=== PATIENT | female | born 1970 | race Caucasian/White ===

== ENCOUNTER 2017-02-04 11:47 | Day surgery (SDC) | payer OTHER ==
[~2017-02-04] VITALS: Ht 165.1 cm; Wt 98.0 kg
[~2017-02-04 11:47] MED LIST: DIAZ5TAB3 PO; ESTR1TAB24 PO; HYDR-3090 PO; Lactated Ringer's 1,000 ML IV SCH; OMEP20CA11 PO; VARE1TAB21 PO
[2017-02-04] MEDS ORDERED: Lidocaine PF 1% 30 mL Inj ONE (11:48)
[2017-02-04] MEDS ORDERED: Propofol 10,000 mCg/mL 20 mL Inj ONE (11:48)
[2017-02-04 12:27] VITALS: BP 117/75; PULSE 54; RESP 16; O2SAT 97
[2017-02-04] MEDS ORDERED: MetoCLOpramide 5 mg/mL 2 mL Inj IVPUSH PRN (13:00)
[2017-02-04] MEDS ORDERED: Ondansetron 2 mg/mL 2 mL Inj IVPUSH PRN (13:00)
[2017-02-04] MEDS ORDERED: Lactated Ringer's 1,000 ML IV SCH (13:00)
--- NOTE | 2017-02-04 13:49 | PCM.HPANE ---
Patient Data Date of Service: Feb 04, 2017 Surgeon Admitting Provider: Attending Provider:Gina Harvey MD Primary Care Physician:Shilpa Pires MD Other Provider:Geoffrey Vega Anesthesia Reason for Visit Dysphagia Ht/WT & BMI Height (Feet): 5 Height (Inches): 5 Weight (Kilograms): 98 Body Mass Index 35.00 Allergies Coded Allergies: sumatriptan (Verified Allergy, Severe, BRADYCARDIA, 02/04/17) Past Anesthesia History Anesthesia History: Denies:: Abnormal Airway, Anesthesia Reactions, Difficult Intubation, Fam Anesthesia Reaction, Fam Malignant Hypertherm, Malignant Hyperthermia Diabetes History Hx Diabetes?: No MRSA MRSA: No Medications Hypertension Medication: No Home Meds Incl Beta Araceli: No Reported Medications Omeprazole 20 Mg Capsule.dr20 Mg PO DAILY Ref 0 02/03/17 Estradiol 1 Mg Tablet1 Mg PO DAILY Ref 0 02/03/17 Diazepam 5 Mg Tablet5 Mg PO QID PRN For Anxiety Ref 0 02/03/17 Varenicline Tartrate (Chantix)1 Each Tab.ds.pk1 Each PO 02/03/17 Discontinued Reported Medications Hydrocodone-Acetaminophen 5-300 mg 1 Each Tablet1 Tablet PO Q4H PRN For Pain Ref 0 02/03/17 History HEENT History: Positive for:: Dysphagia (SWALLOWING WATER) Denies:: Abnormal Airway Difficult Intubation Hearing Problem Hx of Heart Problems?: No Cardiovascular History: Denies:: AICD Pacemaker Valvular Heart Disease Hx of Respiratory Problem?: Yes Respiratory History: Positive for:: Asthma Pneumonia Denies:: COPD Cough Hemoptysis Tuberculosis Hx Neurologic Problems?: No Neurological History: Denies:: CVA Hx of GI Problems?: Yes Gastrointestinal History: Positive for:: Gall Bladder Disease Gastroesphageal Reflux Rectal Bleeding Denies:: Cirrhosis Diverticulitis Hiatal Hernia Liver Disease Hx of Problems?: No HX of Peritoneal Dialysis: No Musculoskeletal History: Denies:: Fibromyalgia Joint Replacement Psycho Social History: Positive for:: Anxiety Denies:: Hx Depression Hx Surgeries?: Yes (R KNEE, HYSTERECTOMY, GALLBLADDER, R SHOULDER, T&A) Hx Any Other Health Problems?: Yes Hx Diabetes: No Hx Alcohol Use: Yes (OCCAS) Smoking Status: Current Every Day Smoker Have You Smoked inLast 12 mo: Yes Stop/Bang Treated for Sleep Apnea?: No Do You Have a CPAP Machine?: No S-Snoring: Do You Snore Loudly: Yes T-Tired: feel tired, fatigued: Yes O-Obsered: Observed not breath: No P-Blood Pressure: treated: No B- Body Mass Index > 35 kg/m2: Yes A- Age over 50: No N- Neck Large Circumference: Yes G- Gender Male: No SARAH Total Score: 4 SARAH Risk Assessment: High Risk, =/>3 Yes Risk Assessment Category Category 1A: Patient has history of documented sleep apnea, and HAS NOT received any narcotic, sedative or anesthesia administration during this stay. Category 1B: Patient has history of documented sleep apnea, and HAS received any narcotic , sedative or anesthesia administration during this stay Category 2: Patient has SUSPECTED Obstructive Sleep Apnea, and HAS received any narcotic , sedative or anesthesia administration during this stay. Category 3: Patient has SUSPECTED Obstructive Sleep Apnea and HAS NOT received narcotic, sedative or anesthesia administration during this stay. Category 4: Outpatient in Procedural Areas with known sleep apnea or who screen positive for High Risk via the STOP/BANG questionnaire. Exam Exam Vital Signs Vital Signs Date Time Temp Pulse Resp B/P Pulse Ox O2 Delivery O2 Flow Rate FiO2 02/04/17 12:27 36.7 54 16 117/75 97 Room Air General Appearance: Alert, Oriented X3, Cooperative HEENT/AIRWAY: MP 1, Neck Movement (Full), Mouth Opening (Wide) Lungs: Clear to Auscultation, Normal Air Movement Heart: Regular Rate/Rhythm, Normal S1, Normal S2 Plan Impression Patient chart reviewed, patient interviewed and anesthestic plan with risks, benefits, and alternatives discussed, and informed consent obtained. NPO Status: > 8 hours solids, > 2 hours liquids ASA Physical Status: ASA2 Mod Systemic Disease Anesthetic Plan: MAC Bene/Risks/Altern/Consents: Yes HP Complete Prior to Induction: Yes Floyd Nichols MD Feb 04, 2017 12:59
[2017-02-04 14:24] VITALS: BP 115/75; PULSE 86; RESP 14; O2SAT 95
[2017-02-04 14:34] VITALS: BP 115/75; PULSE 92; RESP 14; O2SAT 95
--- NOTE | 2017-02-04 14:35 | PCM.ANEP1 ---
Post Anesthesia Phase 1 PACU Phase 1 Assessment Date of Service: Feb 04, 2017 Vital Signs Vital Signs Date Time Temp Pulse Resp B/P Pulse Ox O2 Delivery O2 Flow Rate FiO2 02/04/17 14:24 36.4 86 14 115/75 95 Room Air 02/04/17 12:27 36.7 54 16 117/75 97 Room Air Anesthetic Administered: MAC Level of Alertness: Sleepy, easy to arouse DUNLAP's with Equal Strength: No Pain: No Nausea or Vomiting: No Oxygen Delivery: Room Air Lungs: Normal Air Movement Floyd Nichols MD Feb 04, 2017 14:35
--- NOTE | 2017-02-04 14:41 | PCM.ANEP2 ---
Post Anesthesia Evaluation ASA/CMS Post Anesthesia Date of Service: Feb 04, 2017 VS in Patient's Normal Range?: Yes Resp Stable; Airway Patent?: Yes CV Function & Hydration Stable: Yes Mental Status Recovered?: Yes Pain control Satisfactory?: Yes N/V Control Satisfactory?: Yes Floyd Nichols MD Feb 04, 2017 14:41
[2017-02-04 14:44] VITALS: BP 118/71; PULSE 58; RESP 16; O2SAT 100
--- NOTE | 2017-02-05 01:52 | ENDO ---
[address] [address] ENDOSCOPY PROCEDURE PATIENT: FIONA JONES : 1970 MR#: [id number] ADMIT: 02/04/2017 JOB ID: [id number] DATE OF PROCEDURE: PROCEDURE: Esophagogastroduodenoscopy. INDICATION: Dysphagia. SEDATION: Patient's ASA classification, Mallampati score, and medications as per Dr. Дмитрий Nichols's anesthesia report. INSTRUMENT USED: [id number]. PROCEDURE DETAILS: After informed consent was obtained, the patient was brought to the GI suite, where she was placed on oxygen via nasal cannula and monitored with continuous pulse oximeter, telemetry, and blood pressure monitoring. A time-out was performed. Then, she was placed in the left lateral decubitus position and medications were administered for sedation. A bite block was placed. The standard EGD scope was inserted through the bite block and advanced under direct visualization to the second portion of duodenum without difficulty. FINDINGS: 1. Bile stained mucosa was noted throughout the examined portions of the duodenum. Mucosa otherwise appeared normal. 2. Normal appearing pylorus. 3. In the antrum of the stomach the mucosa appeared unremarkable. However, in the body of stomach, there was erythema. There was a clear demarcation between the antrum and body of stomach based on erythema in the body. Multiple random biopsies were obtained throughout the antrum and body of the stomach. 4. Retroflexed views in the gastric body appeared unremarkable. A small hiatal hernia was appreciated. 5. The diaphragmatic hiatus was at approximately 38 cm and the squamocolumnar junction was at 36 cm. Just above the squamocolumnar junction, there was a small island of salmon-colored mucosa that was biopsied. 6. Remainder of the esophagus appeared unremarkable otherwise. 7. Multiple random biopsies were obtained in the midesophagus. IMPRESSION: 1. Gastritis. 2. Slightly irregular gastroesophageal junction. 3. Small hiatal hernia. RECOMMENDATIONS: 1. Continue PPI. 2. Reflux precautions. 3. Await biopsy results and follow up in GI clinic. COMPLICATIONS: None. ESTIMATED BLOOD LOSS: Less than 5 mL.
--- NOTE | 2017-02-08 16:28 | PATH ---
SURGICAL PATHOLOGY Attending Physician:Dunia Escoto CASE STATUS: Signed Out PATIENT NAME: FIONA JONES PID: [id number] : 1970 DATE COLLECTED:02/04/2017 00:00 SPECIMEN: 1: Stomach, Polyp, Biopsy 2: Esophagus, Biopsy 3: Esophagus, Biopsy CLINICAL HISTORY: 1). RANDOM GASTRIC BX 2). DISTAL ESOPHAGUS BX 3). MID ESOPHAGUS BX FINAL DIAGNOSIS: 1.STOMACH, RANDOM BIOPSIES: BODY-TYPE MUCOSA WITH NO DIAGNOSTIC ABNORMALITY. Negative for Helicobacter organisms. Negative for intestinal metaplasia. Negative for dysplasia and malignancy. 2.DISTAL ESOPHAGUS, BIOPSIES: SQUAMOCOLUMNAR JUNCTIONAL MUCOSA WITH MILD ACTIVE INFLAMMATION. No obvious fungal organisms identified. Negative for intestinal metaplasia. Negative for dysplasia and malignancy. 3.MID ESOPHAGUS, BIOPSIES: SQUAMOUS EPITHELIUM WITH NO DIAGNOSTIC ABNORMALITY. Intraepithelial eosinophils are not increased. Negative for dysplasia and malignancy. ICD10 CODE R10.9 GROSS DESCRIPTION: Received are three formalin-filled containers, each labeled with the patient' s name. 1. Received in formalin, labeled with the patient' s name and "1. Random gastric", are two fragments of ziegler, soft tissue ranging in size from 0.1 x 0.1 x 0.1 cm to 0.2 x 0.1 x 0.1 cm. All fragments are totally submitted in cassette 1A. 2. Received in formalin, labeled with the patient' s name and "2. Distal esoph", is one fragment of ziegler, soft tissue measuring 0.3 x 0.2 x 0.1 cm. The fragment is totally submitted in cassette 2A. 3. Received in formalin, labeled with the patient' s name and "3. Mid esoph", are four fragments of ziegler, soft tissue ranging in size from 0.1 x 0.1 x 0.1 cm to 0.2 x 0.1 x 0.1 cm. All fragments are totally submitted in cassette 3A. ([id number]) MICRO DESCRIPTION: See diagnosis. ICD-9 CODES: CPT CODES: 1: 71803 2: 44298 3: 30401 Electronically Signed Out Namita Silva MD [facility] [address], [place] [address] Technical component performed at [facility], [address], [place], [address]
== END 2017-02-04 23:59 | disposition home or self-care (01) ==
LOC: END 11:47
PROVIDERS: ATTEND Internal Medicine Gastroenterology
DX: K29.70 Gastritis, unspecified, without bleeding (principal); K63.89 Other specified diseases of intestine; K44.9 Diaphragmatic hernia without obstruction or gangrene; K21.9 Gastro-esophageal reflux disease without esophagitis; J45.909 Unspecified asthma, uncomplicated; R01.1 Cardiac murmur, unspecified; M54.2 Cervicalgia
CPT/HCPCS: 43239; J7120

== ENCOUNTER 2017-03-30 08:00 | Day surgery (SDC) | payer OTHER ==
[~2017-03-30 08:00] MED LIST changes: -HYDR-3090 PO; -Lactated Ringer's 1,000 ML IV SCH
[2017-03-30] MEDS ORDERED: Lidocaine Topical 2% 30 mL Jelly ONE (08:16)
== END 2017-03-30 23:59 | disposition home or self-care (01) ==
LOC: END 08:00
PROVIDERS: ATTEND Internal Medicine Gastroenterology
DX: R13.10 Dysphagia, unspecified (principal)